=== PATIENT | male | born 1995 | race Caucasian/White ===

== ENCOUNTER 2018-03-13 07:18 | Emergency (ER) | payer SELFPAY ==
[~2018-03-13] VITALS: Ht 193 cm; Wt 86.0 kg
[~2018-03-13 07:18] MED LIST: ALKA-SELTZE1 OR; BACTRIM DS1 TAB PO; MOTRIN800 MG PO; NAPROSYN500 MG OR; NAPROSYN500 MG PO; SEROQUEL50 MG OR; TYLENOL325 M1 RE; ZOLOFT25 MG OR; ZOLOFT50 MG OR
[2018-03-13 08:12] LABS: URINE BLOOD DIPSTICK MODERATE (NEGATIVE); URINE COLOR YELLOW; URINE GLUCOSE - DIPSTICK NEGATIVE (NEGATIVE); URINE KETONE NEGATIVE (NEGATIVE); URINE NITRITE - DIPSTICK NEGATIVE (Negative); URINE PROTEIN - DIPSTICK 100 mg/dL (NEG-TRACE); URINE SPECIFIC GRAVITY >=1.030
[2018-03-13 08:20] LABS: URINE BILIRUBIN - DIPSTICK SMALL (NEGATIVE); URINE CLARITY CLOUDY; URINE LEUK ESTERASE SMALL (NEGATIVE)
[2018-03-13 08:22] LABS: URINE SPERM FEW hpf (NONE-RARE); URINE WBC >100 WBC/hpf (0-5)
[2018-03-13 08:23] LABS: URINE RBC 0-2 RBC/hpf (0-5)
[2018-03-13] MEDS ORDERED: CIPROFLOXACN500 MG PO (08:29)
[2018-03-13] MEDS ORDERED: PYRIDIUM200 MG PO (08:29)
[2018-03-13 08:30] VITALS: BP 135/77
== END 2018-03-13 08:32 | disposition home or self-care (01) | DRG 690 ==
LOC: ED 07:18
PROVIDERS: Emergency Medicine
DX: N39.0 Urinary tract infection, site not specified (principal); A54.00 Gonococcal infection of lower genitourinary tract, unspecified; F17.210 Nicotine dependence, cigarettes, uncomplicated

== ENCOUNTER → 2018-10-26 | Outpatient (REF) | payer OTHER ==
[~2018-10-26] MED LIST changes: +CIPROFLOXACN500 MG PO; +PYRIDIUM200 MG PO
[2018-10-26 15:27] LABS: URINE BILIRUBIN - DIPSTICK NEGATIVE (NEGATIVE); URINE BLOOD DIPSTICK SMALL (NEGATIVE); URINE COLOR YELLOW; URINE GLUCOSE - DIPSTICK NEGATIVE (NEGATIVE); URINE KETONE NEGATIVE (NEGATIVE); URINE LEUK ESTERASE MODERATE (Negative); URINE NITRITE - DIPSTICK NEGATIVE (Negative); URINE PH 7.5 (4.5-8.0); URINE PROTEIN - DIPSTICK 100 mg/dL (NEG-TRACE)
[2018-10-26 15:28] LABS: URINE CLARITY CLOUDY
[2018-10-26 15:37] LABS: URINE WBC >100 WBC/hpf (0-5)
== END | disposition home or self-care (01) | DRG 696 ==
LOC: LABSPEC 14:49
PROVIDERS: ATTEND Nurse Practitioner Family
DX: R30.0 Dysuria (principal)